=== PATIENT | male | born 1970 | race African-American/Black ===

== ENCOUNTER 2017-10-18 13:03 | Outpatient (RCR) | payer OTHER ==
[~2017-10-18 13:03] MED LIST: SUDAFED30 MG PO; TYLENOL 325MG325 MG PO
== END 2017-10-19 | disposition home or self-care (01) ==
LOC: COL.CR
DX: Z48.812 Encounter for surgical aftercare following surgery on the circulatory system (principal); Z95.5 Presence of coronary angioplasty implant and graft; I21.4 Non-ST elevation (NSTEMI) myocardial infarction; I25.10 Atherosclerotic heart disease of native coronary artery without angina pectoris; I10 Essential (primary) hypertension; E78.5 Hyperlipidemia, unspecified

== ENCOUNTER 2017-12-31 10:29 | Outpatient (RCR) | payer OTHER | END 2018-01-18 | disposition home or self-care (01) | LOC: COL.CR | DX: Z48.812 Encounter for surgical aftercare following surgery on the circulatory system (principal); Z95.5 Presence of coronary angioplasty implant and graft ==